=== PATIENT | female | born 1975 | race Caucasian/White ===

== ENCOUNTER → 2017-10-29 09:21 | Outpatient (CLI) | payer OTHER, SELFPAY ==
[2017-10-29 11:50] LABS: Vitamin B12 949 pg/mL (239-931)
== END ==
PROVIDERS: PCP Family Medicine; Visit Provider Nurse Practitioner
DX: R53.83 Other fatigue (principal); F45.8 Other somatoform disorders; R20.9 Unspecified disturbances of skin sensation
CPT/HCPCS: 36415; 82607; 86664; 86665

== ENCOUNTER → 2018-02-27 14:29 | Outpatient (REF) | payer OTHER, SELFPAY | LOC: LAB 14:29 | PROVIDERS: PCP Family Medicine; Visit Provider Nurse Practitioner Family | DX: R39.15 Urgency of urination (principal) | CPT/HCPCS: 87086 ==

== ENCOUNTER → 2018-08-26 | Outpatient (REF) | payer OTHER, SELFPAY | LOC: LAB 13:51 | PROVIDERS: PCP Family Medicine; Visit Provider Internal Medicine ==

== ENCOUNTER → 2018-08-27 17:16 | Outpatient (CLI) | payer OTHER, SELFPAY ==
[2018-08-27 18:54] LABS: Cancer Antigen 125 27 U/mL (0-35)
== END ==
PROVIDERS: PCP Family Medicine; Visit Provider Obstetrics & Gynecology
DX: N83.202 Unspecified ovarian cyst, left side (principal)
CPT/HCPCS: 36415; 86304

== ENCOUNTER → 2021-11-09 15:05 | Outpatient (CLI) | payer OTHER, SELFPAY ==
[2021-11-09 17:20] LABS: Cancer Antigen 125 26.9 U/mL (0-35)
== END ==
PROVIDERS: PCP Family Medicine; Referring Provider Obstetrics & Gynecology; Visit Provider Obstetrics & Gynecology
DX: N94.89 Other specified conditions associated with female genital organs and menstrual cycle (principal)
CPT/HCPCS: 36415; 86304

== ENCOUNTER → 2022-03-16 16:51 | Outpatient (CLI) | payer OTHER, SELFPAY ==
--- NOTE | 2022-03-16 16:55 | DI.RAD.S_ITS ---
PROCEDURE: XR CHEST 2V INDICATIONS: Cough TECHNIQUE: 2 views of the chest were acquired. COMPARISON: [facility], , CHEST 1 VIEW, 01/03/2017, 5:05. FINDINGS: Surgical changes and devices: None. Lungs and pleura: Lungs are clear. No pleural effusions or pneumothorax. Mediastinum: Mediastinal contours are normal. Heart size is normal. Bones and chest wall: No suspicious bony abnormalities. Soft tissues appear unremarkable. IMPRESSION: No acute pulmonary process. Dictated by: Pretty Gregory M.D. on 03/16/2022 at 19:01 Approved by: Pretty Gregory M.D. on 03/16/2022 at 19:03
== END ==
PROVIDERS: PCP Family Medicine; Referring Provider Family Medicine; Visit Provider Family Medicine
DX: R05.9 Cough, unspecified (principal)
CPT/HCPCS: 71046

== ENCOUNTER → 2023-01-08 14:15 | Outpatient (CLI) | payer OTHER, SELFPAY ==
--- NOTE | 2023-01-08 | DI.RAD.S_ITS ---
PROCEDURE: XR KNEE LT 3V INDICATIONS: CHRONIC LEFT KNEE PAIN TECHNIQUE: 3 views of the knee were acquired. COMPARISON: None. FINDINGS: Bones: No fractures or dislocations. No suspicious bony lesions. Moderate medial and patellofemoral compartment osteoarthritis with mild joint space narrowing and osseous hypertrophy. Soft tissues: No joint effusion. No suspicious soft tissue calcifications. IMPRESSION: Moderate medial and patellofemoral compartment osteoarthritis. Dictated by: Rosa M Dela Cruz MD, PhD on 01/08/2023 at 15:16 Approved by: Rosa M Dela Cruz MD, PhD on 01/08/2023 at 15:16
== END ==
PROVIDERS: PCP Family Medicine; Referring Provider Internal Medicine; Visit Provider Internal Medicine
DX: M25.562 Pain in left knee (principal); G89.29 Other chronic pain; M17.12 Unilateral primary osteoarthritis, left knee
CPT/HCPCS: 73562

== ENCOUNTER → 2025-04-09 13:28 | Outpatient (CLI) | payer OTHER, SELFPAY ==
[2025-04-09 14:14] LABS: Influenza A - CEPHEID Flu A NEGATIVE (NEGATIVE); Influenza B - CEPHEID Flu B NEGATIVE (NEGATIVE)
[2025-04-09 14:16] LABS: COVID-19 CEPHEID 4-PLEX PCR Negative (Negative)
== END ==
PROVIDERS: PCP Family Medicine; Referring Provider Nurse Practitioner Family; Visit Provider Nurse Practitioner Family
DX: R05.1 Acute cough (principal)
CPT/HCPCS: 87637

== ENCOUNTER → 2025-04-09 13:46 | Outpatient (CLI) | payer OTHER, SELFPAY ==
--- NOTE | 2025-04-09 13:47 | DI.RAD.S_ITS ---
PROCEDURE: XR CHEST 2V INDICATIONS: Cough TECHNIQUE: 2 views of the chest were acquired. COMPARISON: [facility], CR, XR CHEST 2V, 03/16/2022, 16:59. FINDINGS: Surgical changes and devices: None. Lungs and pleura: Lungs are clear. No pleural effusions or pneumothorax. Mediastinum: Mediastinal contours are normal. Heart size is normal. Bones and chest wall: No suspicious bony abnormalities. Soft tissues appear unremarkable. IMPRESSION: No acute pulmonary process. Dictated by: Pretty Gregory M.D. on 04/09/2025 at 14:16 Approved by: Pretty Gregory M.D. on 04/09/2025 at 14:16
== END ==
PROVIDERS: PCP Family Medicine; Referring Provider Nurse Practitioner Family; Visit Provider Nurse Practitioner Family
DX: R05.1 Acute cough (principal)
CPT/HCPCS: 71046; 87637